=== PATIENT | female | born 1985 | race Caucasian/White ===

== ENCOUNTER 2023-10-18 16:25 | Observation (INO) | payer OTHER, MEDICAID ==
[~2023-10-18 16:25] MED LIST: PRE NATAL VITAMIN
== END 2023-10-18 19:57 | disposition home or self-care (01) ==
LOC: LDRP 16:25
PROVIDERS: ADMIT Obstetrics & Gynecology; ATTEND Obstetrics & Gynecology
DX: O26.892 Other specified pregnancy related conditions, second trimester (principal); R10.9 Unspecified abdominal pain; Z3A.27 27 weeks gestation of pregnancy
CPT/HCPCS: 59025; 76815; 81002; 94760; G0378